=== PATIENT | female | born 1980 | race American Indian/Alaskan Native ===

== ENCOUNTER 2018-04-20 17:20 | Inpatient (IN) | payer MEDICAID, OTHER ==
[2018-04-20 17:20] VITALS: BMI 30.1
--- NOTE | 2018-04-20 17:46 | ED PDOC ---
HPI: Psych/Substance Abuse Chief Complaint (Provider): Psychiatric Evaluation History Per: Patient History/Exam Limitations: no limitations Onset/Duration Of Symptoms: Hrs Current Symptoms Are (Timing): Still Present Associated Symptoms: Depression, Suicidal Plan (cut wrists) Additional Complaint(s): Mariana Castillo is a 38 year old female with a past medical history of depression, diabetes, and hypertension who is presenting to the ED for psychiatric evaluation. Patient states that she has been off of medication, Zoloft and Buspar, for about a year and has not been under anyones care for that time. She states that she felt a lot of stress in her life and planned to drink excessively and cut her wrists. Patient denies drinking today and denies drug use, homicidal ideation, or hallucinations. PMD: Conner Watt <Reji Meek - Last Filed: 04/20/18 22:56> <Cliff Wolf - Last Filed: 04/22/18 04:43> Time Seen by Provider: 04/20/18 17:37 Chief Complaint (Nursing): Psychiatric Evaluation Past Medical History Reviewed: Historical Data, Nursing Documentation, Vital Signs Vital Signs: Last Vital Signs Temp 98.7 F 04/20/18 17:22 Pulse 98 H 04/20/18 17:22 Resp 16 04/20/18 17:22 BP 159/114 H 04/20/18 17:22 Pulse Ox 97 04/20/18 17:22 - Medical History PMH: Diabetes, HTN Denies: Anxiety, Bipolar Disorder, Depression, Personality Disorder, Post Traumatic Stress Disorder, Chronic Kidney Disease, Schizophrenia - Surgical History Surgical History: No Surg Hx - Family History Family History: States: Unknown Family Hx - Social History Current smoker - smoking cessation education provided: No Alcohol: > 2 Drinks/Day Drugs: Denies - Immunization History Hx Tetanus Toxoid Vaccination: No Hx Influenza Vaccination: No Hx Pneumococcal Vaccination: No <Reji Meek - Last Filed: 04/20/18 22:56> Vital Signs: Last Vital Signs Temp 97.3 F L 04/21/18 15:38 Pulse 96 H 04/21/18 15:38 Resp 19 04/21/18 15:38 BP 132/86 04/21/18 15:38 Pulse Ox 97 04/20/18 22:56 <Cliff Wolf - Last Filed: 04/22/18 04:43> - Home Medications Home Medications: Ambulatory Orders Medication Instructions Recorded RX: No Known Home Med 01/16/16 - Allergies Allergies/Adverse Reactions: Allergies Allergy/AdvReac Type Severity Reaction Status Date / Time No Known Allergies Allergy Verified 04/20/18 17:22 Review of Systems ROS Statement: Except As Marked, All Systems Reviewed And Found Negative Psych: Positive for: Depression, Suicidal ideation. Negative for: Other (homicidal ideation, hallucinations ) <Reji Meek - Last Filed: 04/20/18 22:56> Physical Exam - Reviewed Nursing Documentation Reviewed: Yes Vital Signs Reviewed: Yes - Physical Exam Appears: Positive for: Non-toxic, No Acute Distress Head Exam: Positive for: ATRAUMATIC, NORMAL INSPECTION, NORMOCEPHALIC Skin: Positive for: Normal Color, Warm, DRY Eye Exam: Positive for: EOMI, Normal appearance, PERRL ENT: Positive for: Normal ENT Inspection Neck: Positive for: Normal, Painless ROM Cardiovascular/Chest: Positive for: Regular Rate, Rhythm. Negative for: Murmur Respiratory: Positive for: Normal Breath Sounds. Negative for: Respiratory D istress Gastrointestinal/Abdominal: Positive for: Normal Exam, Soft. Negative for: Tenderness Back: Positive for: Normal Inspection Extremity: Positive for: Normal ROM. Negative for: Deformity, Swelling Neurologic/Psych: Positive for: Alert, Oriented. Negative for: Motor/Sensory Deficits <Reji Meek - Last Filed: 04/20/18 22:56> - Laboratory Results Result Diagrams: 04/20/18 17:59 04/20/18 17:59 Urine POC: Negative - ECG O2 Sat by Pulse Oximetry: 97 (RA) Pulse Ox Interpretation: Normal - Progress ED Course And Treament: seen by crisis admit to dr. vaca diagnosis depression <Reji Meek - Last Filed: 04/20/18 22:56> - Laboratory Results Result Diagrams: 04/20/18 17:59 04/20/18 17:59 <Cliff Wolf - Last Filed: 04/22/18 04:43> Medical Decision Making Medical Decision Making: Time: 17:39 Plan: --Alcohol Serum --CMP --Drug Screen --Crisis Evaluation --ED Urine --CBC --1:1 Observation --Accucheck --Urinalysis 17:42 Crisis Team consulted regarding patient. Scribe Attestation: Documented by Patricia Ward, acting as a scribe for Reji Meek PA-C. Provider Scribe Attestation: All medical record entries made by the Scribe were at my direction and personally dictated by me. I have reviewed the chart and agree that the record accurately reflects my personal performance of the history, physical exam, medical decision making, and the department course for this patient. I have also personally directed, reviewed, and agree with the discharge instructions and disposition. <Reji Meek - Last Filed: 04/20/18 22:56> Disposition - Patient ED Disposition Is Patient to be Admitted: Yes - Disposition Disposition Time: 19:24 - Pt Status Changed To: Hospital Disposition Of: Inpatient - Admit Certification Admit to Inpatient:: After my assessment, the patient will require hospitalization for at least two midnights. This is because of the severity of symptoms shown, intensity of services needed, and/or the medical risk in this patient being treated as an outpatient. <Reji Meek - Last Filed: 04/20/18 22:56> <Cliff Wolf - Last Filed: 04/22/18 04:43> - Clinical Impression Clinical Impression: Depression - Disposition Condition: STABLE - PA / [employer] TECHNICIAN / Resident Statement / has reviewed & agrees with the documentation as recorded. <Cliff Wolf - Last Filed: 04/22/18 04:43>
[2018-04-20 18:09] LABS: BASO # 0.1 K/uL (0.0-0.2); BASO % 0.8 % (0.0-2.0); EOS # 0.1 K/uL (0.0-0.7); HEMOGLOBIN 13.4 g/dL (12.0-16.0); LYMPH # 2.4 K/uL (1.0-4.3); LYMPH % 38.7 % (20.0-40.0); MEAN CELL VOLUME 90.6 fl (81.0-99.0); MEAN CORPUSCULAR HEMOGLOBIN 30.1 pg (27.0-31.0); MEAN CORPUSCULAR HGB CONC 33.2 g/dL (33.0-37.0); MEAN PLATELET VOLUME 7.5 fl (7.2-11.7); MONO # 0.4 K/uL (0.0-0.8); MONO % 7.1 % (0.0-10.0); NEUT # 3.3 K/uL (1.8-7.0); NEUT % 51.4 % (50.0-75.0); RBC 4.45 Mil/uL (3.80-5.20); RED CELL DISTRIBUTION WIDTH 14.2 % (11.5-14.5); WHITE BLOOD COUNT 6.3 K/uL (4.8-10.8)
[2018-04-20 18:25] LABS: ALB/GLOB RATIO 1.1 (1.0-2.1); ALBUMIN 4.4 g/dL (3.5-5.0); ALT/SGPT 26 U/L (9-52); AST/SGOT 25 U/L (14-36); BLOOD UREA NITROGEN 15 mg/dl (7-17); CALCIUM 9.9 mg/dL (8.4-10.2); GFR NON-AFRICAN AMERICAN > 60
[2018-04-20 19:31] LABS: SQUAMOUS EPITHIAL 11 /hpf (0-5); URINE BACTERIA RARE (<OCC); URINE BILIRUBIN NEGATIVE (NEGATIVE); URINE BLOOD NEGATIVE (NEGATIVE); URINE CLARITY CLOUDY (Clear); URINE COLOR YELLOW (YELLOW); URINE GLUCOSE (UA) NEG (Normal); URINE LEUKOCYTE ESTERASE NEG Leu/uL (Negative); URINE PROTEIN 30 mg/dL (NEGATIVE); URINE UROBILINOGEN 0.2-1.0 mg/dL (0.2-1.0)
[2018-04-20 19:50] LABS: BARBITURATES, UR NEGATIVE (NEGATIVE); BENZODIAZEPINES, UR NEGATIVE (NEGATIVE); OPIATES, UR NEGATIVE (NEGATIVE); PHENCYCLIDINE, UR NEGATIVE (NEGATIVE)
[2018-04-20] MEDS ORDERED: Magnesium Hydroxide Susp 30 ml UD PO PRN (21:38)
[2018-04-20] MEDS ORDERED: DiphenhydrAMINE 50 mg/ml Inj IM PRN (21:38)
[2018-04-20] MEDS ORDERED: Alum-Mag Hydrox-Simethicone Susp (30 mL) PO PRN (21:38)
--- NOTE | 2018-04-20 22:28 | PCM.BM ---
<Kristian Booker - Last Filed: 04/20/18 22:26> Treatment Plan Problems - Problems identified on initial assessmt Hopelessness/Helplessness Date Initiated: 04/20/18 Time Initiated: 22:27 Assessment reference: NA Status: Active Altered Sleep Patterns Date Initiated: 04/20/18 Time Initiated: 22:27 Assessment reference: NA Status: Active Medication nonadherence Date Initiated: 04/20/18 Time Initiated: 22:28 Assessment reference: NA Status: Active Treatment assets and liabiliti Patient Assests: cooperative, negotiates basic needs Patient Liabilities: financial problems - Milieu Protocol Maintain good personal hygiene: daily Encourage regular showers, daily Remind patient to perform daily oral care, daily Assist patient to perform ADL's Conduct patient checks and document Observation sheet: Q15 minutes Maintain personal safety: every shift Educate patient to report safety concerns to staff, every shift Monitor environment for contraband/sharps Medication safety: Monitor for expected outcome, potential side effects: every shift, Assess barriers to learning: every shift, Assess readiness for medication education: every shift <Julienne Smiley - Last Filed: 04/22/18 11:10> - Diagnosis (1) Major depressive disorder Status: Acute Interventions: Medication management, Individual and group therapy, Psychoeducation 04/22/18 11:10 <Jenna Cardona - Last Filed: 04/23/18 08:35> Family Contact Family involvement: Patient does not wish Family/SO involvement Family contact: Patient agrees to contact, Telephone contact initiated by staff Family contact name: Kane - significant other Family contacted how many times per week?: 2 Family contact comment: [phone] - Goals for Treatment Patient goals for treatment: Pt to be encouraged to attend activity and clinical groups 3-5x per week to identify at least 2 contributing factors to depression and suicide attempt. Psycho-education to be provided to patient/family regarding benefits of medications and treatment adherence. Pt to be encouraged to participate in group milieu to develop effective coping skills to reduce depression and free of suicide ideation. Coordinate discharge resource needs by providing referral for psychiatric treatment follow up in the community. Discharge/Continuing Care - Education Needs Education Needs: Family Medication, Family Diagnosis/Disease Process, Family Coping Skills, Family Anger Management skills, Family Community resources, Family Activities of Daily Living, Family Health Practices/Safety, Family Aftercare Safety Plan, Patient Medication, Patient Diagnosis/Disease Process, Patient Coping Skills, Patient Anger Management skills, Patient Community resources, Patient Activities of Daily Living, Patient Health Practices/Safety, Patient Aftercare Safety Plan - Discharge Discharge Criteria: Tolerates medication w/o severe side effects, Free of Suicidal thoughts, Normal sleep pattern, Ability to care for self, Reduction of target symptoms Discharge to:: Home, With Family - Additional Comments 04/23/18 08:22 Pt seen and discussed in team meeting. Reason for hospitalization reviewed and discussed. Pt reported being hospitalized because "i was having thoughts." Pt reported feeling overwhelmed with personal life and work. Pt reported that she began to experience suicide ideation on Sunday and Sunday. Pt was referred to the ED by her children's father - pt's significant other. Pt reported that today she feels "better" and is requesting to be discharged. 48 hour notice of intent to leave explained to pt. Pt became easily irritable and agitated with team and demanding to be discharged today (04/22/2018). Pt explained that she cannot be discharged unless collateral information is obtained and team feels that she is not a danger to herself or anyone else in the community. Pt refusing to accept information being provided to her. Pt reported that she needs to be at work on 04/23/2018. Pt offered to use her laptop to email her fixer supervisor and inform of hospitalization and that she will not be able to present to work on 04/23/2018; pt deferred offer. Pt stated 'I don't know how you all do it, but that is not professional. I told him i would be at work tomorrow." Pt provided advertising copywriter with written and verbal consent to contact her significant other for collateral information. Pt's social and medical issues reviewed. Pt's medications reviewed. Tx plan reviewed. SW to continue to follow case. - Treatment Team Participation Discussed with Family/SO: No Was Patient/Family/SO present at Treatment Team Meeting: Yes
[2018-04-20 22:56] VITALS: O2SAT 97
[2018-04-21 08:02] LABS: T4 7.24 ug/dl (5.5-11.0)
--- NOTE | 2018-04-21 15:50 | CP.PCM.CON ---
History of Present Illness - History of Present Illness History of Present Illness: 38 year old female with a past medical history of depression, diabetes, and hypertension admitted to psych unit for evaluation/treatment of depression and recent suicidal ideations. Patient was seen and examined at bedside. Patient states feels well, concerned about her psychiatric treatment. Patient states follows up in office regularly. Taking medications, metformin and losartan, though unknown dosages. Patient refuses to take those medications while in house. Denies chest pain, sob, abdominal pain, headaches, palpitations. Review of Systems - Review of Systems All systems: reviewed and no additional remarkable complaints except (mentioned in HPI) Past Patient History - Infectious Disease Hx of Infectious Diseases: None - Past Medical History & Family History Past Medical History?: Yes Past Family History: Reviewed and not pertinent - Past Social History Alcohol: > 2 Drinks/Day Drugs: Denies - CARDIAC Hx Hypertension: Yes - PULMONARY Hx Tuberculosis: No - NEUROLOGICAL HX Cerebrovascular Accident: No Hx Seizures: No - HEENT Hx HEENT Problems: No - RENAL Hx Chronic Kidney Disease: No - ENDOCRINE/METABOLIC Hx Endocrine Disorders: No - HEMATOLOGICAL/ONCOLOGICAL Hx Cancer: No Hx Human Immunodeficiency Virus (HIV): No - INTEGUMENTARY Hx Dermatological Problems: No - MUSCULOSKELETAL/RHEUMATOLOGICAL Hx Musculoskeletal Disorders: No - GASTROINTESTINAL Hx Gastrointestinal Disorders: No - GENITOURINARY/GYNECOLOGICAL Hx Sexually Transmitted Disorders: No - PSYCHIATRIC Hx Anxiety: No Hx Bipolar Disorder: No Hx Depression: No Hx Post Traumatic Stress Disorder: No Hx Schizophrenia: No - SURGICAL HISTORY Hx Surgeries: No Hx Section: Yes - ANESTHESIA Hx Anesthesia: Yes Hx Anesthesia Reactions: No Hx Malignant Hyperthermia: No Meds Allergies/Adverse Reactions: Allergies Allergy/AdvReac Type Severity Reaction Status Date / Time No Known Allergies Allergy Verified 04/20/18 17:22 - Medications Medications: Current Medications Acetaminophen (Tylenol 325mg Tab) 650 mg PO Q4 PRN PRN Reason: Pain, moderate (4-7) Last Admin: 04/21/18 14:36 Dose: 650 mg Al Hydrox/Mg Hydrox/Simethicone (Maalox Plus 30 Ml) 30 ml PO Q4 PRN PRN Reason: Dyspepsia Diphenhydramine HCl (Benadryl) 50 mg IM Q6 PRN PRN Reason: Extrapyramidal S/S Unable PO Diphenhydramine HCl (Benadryl) 50 mg PO Q6 PRN PRN Reason: Extrapyramidal Symptoms Diphenhydramine HCl (Benadryl) 50 mg PO HS PRN PRN Reason: Sleep Haloperidol (Haldol) 5 mg PO Q4 PRN PRN Reason: Agitation Haloperidol Lactate (Haldol) 5 mg IM Q4 PRN PRN Reason: Agitation, Unable to Take PO Lorazepam (Ativan) 1 mg IM Q4 PRN PRN Reason: Anxiety/Agitation,Unable PO Lorazepam (Ativan) 1 mg PO Q4 PRN PRN Reason: Anxiety/Agitation Last Admin: 04/20/18 22:32 Dose: 1 mg Magnesium Hydroxide (Milk Of Magnesia) 30 ml PO HS PRN PRN Reason: Constipation Physical Exam - Constitutional Appears: Well, Non-toxic, No Acute Distress - Head Exam Head Exam: NORMAL INSPECTION - Eye Exam Eye Exam: Normal appearance - Neck Exam Neck exam: Positive for: Normal Inspection - Respiratory Exam Respiratory Exam: Clear to Auscultation Bilateral, NORMAL BREATHING PATTERN - Cardiovascular Exam Cardiovascular Exam: REGULAR RHYTHM, RRR, +S1, +S2 - GI/Abdominal Exam GI & Abdominal Exam: Normal Bowel Sounds, Soft. absent: Tenderness - Extremities Exam Extremities exam: Positive for: normal inspection - Neurological Exam Neurological exam: Alert, Oriented x3 - Psychiatric Exam Psychiatric exam: Normal Affect, Normal Mood - Skin Skin Exam: Dry, Normal Color, Warm Results - Vital Signs Recent Vital Signs: Last Vital Signs Temp 97.3 F L 04/21/18 15:38 Pulse 96 H 04/21/18 15:38 Resp 19 04/21/18 15:38 BP 132/86 04/21/18 15:38 Pulse Ox 97 04/20/18 22:56 - Labs Result Diagrams: 04/20/18 17:59 04/20/18 17:59 Labs: Laboratory Results - last 24 hr 04/20/18 04/20/18 04/20/18 17:52 17:59 17:59 WBC 6.3 RBC 4.45 Hgb 13.4 Hct 40.3 MCV 90.6 MCH 30.1 MCHC 33.2 RDW 14.2 Plt Count 366 MPV 7.5 Neut % (Auto) 51.4 Lymph % (Auto) 38.7 Phillips % (Auto) 7.1 Eos % (Auto) 2.0 Baso % (Auto) 0.8 Neut # (Auto) 3.3 Lymph # (Auto) 2.4 Phillips # (Auto) 0.4 Eos # (Auto) 0.1 Baso # (Auto) 0.1 Sodium 143 Potassium 3.8 Chloride 108 H Carbon Dioxide 25 Anion Gap 14 BUN 15 Creatinine 1.0 Est GFR ( Amer) > 60 Est GFR (Non-Af Amer) > 60 POC Glucose (mg/dL) 89 Random Glucose 100 Calcium 9.9 Total Bilirubin 0.3 AST 25 ALT 26 Alkaline Phosphatase 113 Total Protein 8.5 H Albumin 4.4 Globulin 4.1 H Albumin/Globulin Ratio 1.1 Triglycerides Cholesterol LDL Cholesterol Direct HDL Cholesterol Thyroxine (T4) TSH 3rd Generation Urine Color Urine Clarity Urine pH Ur Specific [place] Urine Protein Urine Glucose (UA) Urine Ketones Urine Blood Urine Nitrate Urine Bilirubin Urine Urobilinogen Ur Leukocyte Esterase Urine RBC (Auto) Urine Microscopic WBC Ur Squamous Epith Cells Urine Bacteria Urine Opiates Screen Urine Methadone Screen Ur Barbiturates Screen Ur Phencyclidine Scrn Ur Amphetamines Screen U Benzodiazepines Scrn U Oth Cocaine Metabols U Cannabinoids Screen Alcohol, Quantitative < 10 RPR 04/20/18 04/20/18 04/21/18 19:17 19:17 05:20 WBC RBC Hgb Hct MCV MCH MCHC RDW Plt Count MPV Neut % (Auto) Lymph % (Auto) Phillips % (Auto) Eos % (Auto) Baso % (Auto) Neut # (Auto) Lymph # (Auto) Phillips # (Auto) Eos # (Auto) Baso # (Auto) Sodium Potassium Chloride Carbon Dioxide Anion Gap BUN Creatinine Est GFR ( Amer) Est GFR (Non-Af Amer) POC Glucose (mg/dL) Random Glucose Calcium Total Bilirubin AST ALT Alkaline Phosphatase Total Protein Albumin Globulin Albumin/Globulin Ratio Triglycerides 74 Cholesterol 182 LDL Cholesterol Direct 121 HDL Cholesterol 38 Thyroxine (T4) 7.24 TSH 3rd Generation 3.70 Urine Color Yellow Urine Clarity Cloudy Urine pH 6.0 Ur Specific [place] 1.028 Urine Protein 30 Urine Glucose (UA) Neg Urine Ketones Negative Urine Blood Negative Urine Nitrate Negative Urine Bilirubin Negative Urine Urobilinogen 0.2-1.0 Ur Leukocyte Esterase Neg Urine RBC (Auto) 7 H Urine Microscopic WBC 2 Ur Squamous Epith Cells 11 H Urine Bacteria Rare Urine Opiates Screen Negative Urine Methadone Screen Negative Ur Barbiturates Screen Negative Ur Phencyclidine Scrn Negative Ur Amphetamines Screen Negative U Benzodiazepines Scrn Negative U Oth Cocaine Metabols Negative U Cannabinoids Screen Negative Alcohol, Quantitative RPR 04/21/18 05:20 WBC RBC Hgb Hct MCV MCH MCHC RDW Plt Count MPV Neut % (Auto) Lymph % (Auto) Phillips % (Auto) Eos % (Auto) Baso % (Auto) Neut # (Auto) Lymph # (Auto) Phillips # (Auto) Eos # (Auto) Baso # (Auto) Sodium Potassium Chloride Carbon Dioxide Anion Gap BUN Creatinine Est GFR ( Amer) Est GFR (Non-Af Amer) POC Glucose (mg/dL) Random Glucose Calcium Total Bilirubin AST ALT Alkaline Phosphatase Total Protein Albumin Globulin Albumin/Globulin Ratio Triglycerides Cholesterol LDL Cholesterol Direct HDL Cholesterol Thyroxine (T4) TSH 3rd Generation Urine Color Urine Clarity Urine pH Ur Specific [place] Urine Protein Urine Glucose (UA) Urine Ketones Urine Blood Urine Nitrate Urine Bilirubin Urine Urobilinogen Ur Leukocyte Esterase Urine RBC (Auto) Urine Microscopic WBC Ur Squamous Epith Cells Urine Bacteria Urine Opiates Screen Urine Methadone Screen Ur Barbiturates Screen Ur Phencyclidine Scrn Ur Amphetamines Screen U Benzodiazepines Scrn U Oth Cocaine Metabols U Cannabinoids Screen Alcohol, Quantitative RPR Nonreactive Assessment & Plan - Assessment and Plan (Free Text) Assessment: 38 year old female with a past medical history of depression, diabetes, and hype rtension admitted for depression/sucidal ideations. plan pt refusing to take BP and DM medications encourage compliance with medications as prescribed vitals and labs were reviewed, unremarkable will continue to monitor BP and blood glucose heart healthy and diabetic diet will in house follow recommendations on psychiatric medications with psychiatrist
--- NOTE | 2018-04-21 16:49 | PCM.PSYCH ---
Initial Psychiatric Evaluation - Initial Psychiatric Evaluation Chief Complaint (in patient's own words): pt presented to [facility] er called suicide hotline stating wanted to take life Patient's Reaction to Hospitalization: signed in voluntary History of Present Illness and Precipitating Events: pt was at home, was feeling overwhelmed, has a 18 yo son, `17 yo son and one year old son. reported approximatedly two years ago, became depressed during and after became depressed-decreased desire to do things, feeling overwhelmed started to see a psychiatrist and therapist. was seeing both for approx. 1 year, was started on sertraline and buproprion reported helped with mood. pt's job and insurance situation could no longer see psychiatrist and therapist and eventually stopped medications approx. 6 months ago. reported day of admission had buproprion and attempted one tablet not trying to hurt self and realized medications requires time. 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 has a middle or intermediate school principal boy friend of 19 years. reports no acute concern for safety. admits that cannot talk to him about how she is feeling. family perceives her as being the strong one concern that will be perceived as being weak. reports that when she tried to talk to boyfriend about feeling down decreased energy feeling overwhelmed. reports that carries most of responsibility of home. Current Medications: Active Medications Generic Name Dose Route Start Last Admin Trade Name Freq PRN Reason Stop Dose Admin Acetaminophen 650 mg 04/20/18 21:38 04/21/18 14:36 Tylenol 325mg Tab PO 650 mg Q4 PRN Administration Pain, moderate (4-7) Al Hydrox/Mg Hydrox/Simethicone 30 ml 04/20/18 21:38 Maalox Plus 30 Ml PO Q4 PRN Dyspepsia Diphenhydramine HCl 50 mg 04/20/18 21:38 Benadryl IM Q6 PRN Extrapyramidal S/S Unable PO Diphenhydramine HCl 50 mg 04/20/18 21:38 Benadryl PO Q6 PRN Extrapyramidal Symptoms Diphenhydramine HCl 50 mg 04/20/18 21:38 Benadryl PO HS PRN Sleep Haloperidol 5 mg 04/20/18 21:38 Haldol PO Q4 PRN Agitation Haloperidol Lactate 5 mg 10/06/18 21:38 Haldol IM Q4 PRN Agitation, Unable to Take PO Lorazepam 1 mg 04/20/18 21:38 Ativan IM Q4 PRN Anxiety/Agitation,Unable PO Lorazepam 1 mg 04/20/18 21:38 04/20/18 22:32 Ativan PO 1 mg Q4 PRN Administration Anxiety/Agitation Magnesium Hydroxide 30 ml 04/20/18 21:38 Milk Of Magnesia PO HS PRN Constipation Past Psychiatric History - Past Psychiatric History Prior Professional Help: history of post depression Prior Psychiatric Treatment: was started opd psychiatrist and therapist [facility]: [facility] depression cont. after delivery- fetacide/infanticide Duration: approx one year stopped rx approx 6 months ago Explanation of prior treatment: began during and continued after delivery History of Abuse: denies History of ETOH/Drug Use: denies History of Family Illness: denies Pertinent Medical Hx (Current Medical&Sleep Prob, Allergies): Allergies Allergy/AdvReac Type Severity Reaction Status Date / Time No Known Allergies Allergy Verified 04/20/18 17:22 No Known Home Med 01/16/16 Review of Systems - Psychiatric Psychiatric: Abnormal Sleep Pattern, Anhedonia, Anxiety, Depression, Irritability, Suicidal Ideation Mental Status Examination - Personal Presentation Personal Presentation: Looks younger than stated age - Affect Affect: Broad - Motor Activity Motor Activity: Calm - Reliability in Providing Information Reliability in Providing Information: Fair - Speech Speech: Organized - Mood Mood: Depressed, Anxious - Formal Thought Process Formal Thought Process: No Impairment - Cognitive Functions Orientation: Person, Place, Situation, Time Sensorium: Alert Attention/Concentration: Attentive Judgement: Imparied, as evidence by: Other - Risk Risk: Suicidal, Diminished functioning - Strength & Assets Inventory Strength & Assets Inventory: Intelligence, Family support (feeling overwhelmed had stopped treatment ), Cooperative DSM 5 DX - DSM 5 DSM 5 Diagnosis: major depressive disorder moderate to severe without psychosis hx of post depression without fetacide or infanticide hx of diabetes - Recommended/Plan of Treatment Treatment Recommendations and Plan of Treatment: inpt admission per attending vital signs and clinical observation per protocol an per clinical status prns per unit protocol pt seen by dr chirinos-team informed pt defers medical mediations restart home meds discharge planning in progress pt reports that works for [employer] reportedly helps set up events, 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 pt will be given a second opportunity to check email for responses under same context pt will see team in am requests referral to psychiatrist and therapist Projected ELOS: 5-7 days Prognosis: guarded Discharge Plan and Discharge Criteria: safety - Smoking Cessation Smoking Cessation Initiated: No Reason for not providing: defers
--- NOTE | 2018-04-22 08:39 | PCM.PYCHPN ---
Psychiatric Progress Note - Psychiatric Progress Note Patient seen today, length of contact: Pt evaluated, case discussed with team, chart reviewed Patient Chief Complaint: "I'm feeling better." Problems Identified/Issues Discussed: Patient reports that prior to coming to the hospital, she had suicidal thoughts, but she no longer has passive or active suicidal ideation/plan/intent. She reports that she has been feeling stressed due to family issues. She denies ac utely feeling depressed and is goal oriented. No AH/VH. She is requesting to sign a 48 hr letter to be discharged from the hospital. Medication Change: Yes (Increase Zoloft) Medical Record Reviewed: Yes Consults ordered or reviewed: Medicine consult Mental Status Examination - Cognitive Function Orientation: Person, Place, Situation, Time Memory: Intact Attention: WNL Concentration: WNL Association: WNL Fund of Knowledge: WN Decription of patient's judgement and insights: Good I/J - Mood Mood: Other (Irritated) - Affect Affect: Broad - Speech Speech: Appropriate - Formal Thought Process Formal Thought Process: No Impairment Psychotic Thoughts and Behaviors: No AH/VH/paranoia/delusions - Suicidal Ideation Suicidal Ideation: No - Homicidal Ideation Homicidal Ideation: No Goal/Treatment Plan - Goal/Treatment Plan Need for Continued Stay: Severe depression anxiety Progress Toward Problem(s) and Goals/Treatment Plan: Major Depressive Disorder -Increase Zoloft to 50 mg PO Daily -Individual and group therapy -Psychoeducation -Medicine consult -Obtain collateral history -Disposition planning Estimated Date of D/C: 04/23/18 - Smoking Cessation Smoking Cessation Initiated: No Reason for not providing: Not indicated
[2018-04-23 06:11] VITALS: BP 120/78; PULSE 90; RESP 18; TEMP 97.1
--- NOTE | 2018-04-23 08:12 | PCM.PYCHDC ---
Mental Status Examination - Mental Status Examination Orientation: Person, Place, Situation, Time Memory: Intact Mood: Neutral Affect: Broad Speech: Appropriate Attention: WNL Concentration: WNL Association: WNL Fund of Knowledge: WNL Formal Thought Process: No Impairment Description of patient's judgement and insight: Good I/J Psychotic Thoughts and Behaviors: No AH/VH/paranoia/delusions Suicidal Ideation: No Current Homicidal Ideation?: No Discharge Summary - Discharge Note Reason for Hospitalization: As per initial HPI: pt was at home, was feeling overwhelmed, has a 18 yo son, `17 yo son and one year old son. reported approximatedly two years ago, became depressed during and after became depressed-decreased desire to do things, feeling overwhelmed started to see a psychiatrist and therapist. was seeing both for approx. 1 year, was started on sertraline and buproprion reported helped with mood. pt's job and insurance situation could no longer see psychiatrist and therapist and eventually stopped medications approx. 6 months ago. reported day of admission had buproprion and attempted one tablet not trying to hurt self and realized medications requires time. 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 has a intermediate card tender boy friend of 19 years. reports no acute concern for safety. admits that cannot talk to him about how she is feeling. family perceives her as being the strong one concern that will be perceived as being weak. reports that when she tried to talk to boyfriend about feeling down decreased energy feeling overwhelmed. reports that carries most of responsibility of home. Laboratory Data: Abnormal Lab Results 04/21/18 05:20 Hemoglobin A1c 5.6 Consultations:: List each consultation separately and include: 1. Reason for request. 2. Findings. 3. Follow-up Consultations: Medicine consult Summary of Hospital Course include:: 1. Description of specific treatment plan utilized for patients during their course of treatmen. 2. Summarize the time- course for resolution of acute symptoms and/or regressed behaviors. 3. Describe issues identified and worked on during hospitalization. 4. Describe medication utilized. 5. Describe medical problems identified and treated. 6. Reassessment of suicide risk Summary of Hospital Course: Patient was admitted to the psychiatry unit and treated w/ individual and group therapy, psychoeducation and Zoloft 50 mg PO Daily. She submitted a 48 hr letter requesting to be discharged, was screened for involuntary admission and found to not meet criteria for involuntary commitment. Patient will be discharged AMA today. Psychoeducation provided on the importance of compliance with treatment and medications. - Diagnosis (1) Major depressive disorder Current Visit: Yes Status: Chronic - Final Diagnosis (DSM 5) Condition upon Discharge: STABLE DSM 5: Major Depressive Disorder Disposition: AGAINST MEDICAL ADVICE Follow-up Treatment Plan: Major Depressive Disorder -Zoloft 50 mg PO Daily -Discharge AMA Prescriptions/Medication Reconciliation: Sertraline [Zoloft] 50 mg PO DAILY #30 tab - Smoking Cessation Smoking Cessation Medication prescribed: No Reason for not providing: Not indicated - Antipsychotic Medications Pt discharged on 2 or more routine antipsychotic medications: No
== END 2018-04-23 09:49 | disposition left against medical advice (07) | DRG 430 ==
LOC: H.ER 17:20 → H.ERHOLD 19:24 → H.STEP 21:35
PROVIDERS: ADMIT Psychiatry & Neurology Psychiatry; ATTEND Psychiatry & Neurology Psychiatry
PROC: GZ51ZZZ Individual Psychotherapy, Behavioral (ICD-10-PCS; principal; 2018-04-20)
DX: F32.1 Major depressive disorder, single episode, moderate (principal); I10 Essential (primary) hypertension; R45.851 Suicidal ideations; Z79.899 Other long term (current) drug therapy; E11.9 Type 2 diabetes mellitus without complications